=== PATIENT | male | born 1985 | race American Indian/Alaskan Native ===

== ENCOUNTER 2016-07-18 15:45 | Emergency (ER) | payer MEDICAID ==
[2016-07-18 16:55] VITALS: BP 137/85
--- NOTE | 2016-07-18 17:02 | Emergency Department Report ---
Entered by SUNNY CROWLEY, acting as scribe for YADIRA STEWART NP. Chief Complaint: Psych Stated Complaint: PSYCH MEDS Time Seen by Provider: 07/18/16 16:48 - HPI History of Present Illness: 31 y/o male went to get his monthly injection of Invega, but he could not get it because he was acting odd and his bp was low. Denies pain - ROS Review of Systems: - pain - Exam Vital Signs: Vital Signs 07/18/16 16:50 Temperature 99.1 F Pulse Rate 77 Respiratory 18 Rate Blood Pressure 137/85 O2 Sat by Pulse 100 Oximetry Physical Exam: Constitutional: The patient is a well-developed, well-nourished, in no apparent distress. PT has a flat affect and is withdrawn MSE screening note: Focused history and physical exam performed. Due to findings the following was ordered: labs ED Disposition for MSE Condition: Stable This documentation as recorded by the scribe,SUNNY CROWLEY,accurately reflects the service I personally performed and the decisions made by me,YADIRA STEWART NP.
[2016-07-18 17:10] LABS: Urine Drugs of Abuse Note Disclamer
[2016-07-18 17:21] LABS: Eosinophils % (Auto) 0.7 % (0.0-4.3); Hematocrit 44.9 % (35.5-45.6); Hemoglobin 14.9 gm/dl (11.8-15.2); Mean Corpuscular HGB Conc 33 % (32-34); Mean Corpuscular Hemoglobin 29 pg (28-32); Mean Corpuscular Volume 86 fl (84-94); Platelet Count 247 K/mm3 (140-440); Red Cell Distribution Width 14.8 % (13.2-15.2)
[2016-07-18 17:24] LABS: Bilirubin,Urine NEG (Negative); Blood,Urine NEG (Negative); Ketones,Urine TR mg/dL (Negative); Leukocyte Esterase,Urine NEG (Negative); Mucus,Urine FEW /HPF; Nitrite,Urine NEG (Negative)
[2016-07-18 17:36] LABS: Alanine Aminotransferase 11 units/L (7-56); Albumin 4.4 g/dL (3.9-5); Albumin/Globulin Ratio 1.6 %; Alkaline Phosphatase 85 units/L (35-129); Anion Gap 19 mmol/L; BUN/Creatinine Ratio 11.25; Blood Urea Nitrogen 9 mg/dL (9-20); Calcium 8.9 mg/dL (8.4-10.2); Carbon Dioxide 26 mmol/L (22-30); Chloride 101.8 mmol/L (98-107); Glucose 102 mg/dL (75-100); Potassium 3.7 mmol/L (3.6-5.0); Sodium 143 mmol/L (137-145); Total Protein 7.2 g/dL (6.3-8.2)
== END 2016-07-18 20:00 | disposition left against medical advice (07) ==
LOC: EEVIPCON 15:45 → ED 15:45
DX: Z76.0 Encounter for issue of repeat prescription (principal); Z53.21 Procedure and treatment not carried out due to patient leaving prior to being seen by health care provider
CPT/HCPCS: 36415; 80053; 80307; 81001; 85025

== ENCOUNTER 2019-01-18 07:53 | Emergency (ER) | payer MEDICAID ==
[2019-01-18 08:57] LABS: Basophils # (Auto) 0.1 K/mm3 (0.0-0.1); Basophils % (Auto) 0.9 % (0.0-1.8); Eosinophils % (Auto) 0.2 % (0.0-4.3); Hematocrit 42.7 % (35.5-45.6); Hemoglobin 14.4 gm/dl (11.8-15.2); Lymphocytes # (Auto) 1.2 K/mm3 (1.2-5.4); Lymphocytes % (Auto) 13.6 % (13.4-35.0); Mean Corpuscular HGB Conc 34 % (32-34); Mean Corpuscular Volume 87 fl (84-94); Monocytes # (Auto) 0.7 K/mm3 (0.0-0.8); Monocytes % (Auto) 7.7 % (0.0-7.3); Platelet Count 354 K/mm3 (140-440); Red Blood Count 4.92 M/mm3 (3.65-5.03); Red Cell Distribution Width 14.5 % (13.2-15.2)
--- NOTE | 2019-01-18 09:02 | Emergency Department Report ---
ED Psych HPI - General Chief Complaint: Overdose Stated Complaint: TOOK MEDS Time Seen by Provider: 01/18/19 08:44 Source: family Mode of arrival: Ambulatory - History of Present Illness Initial Comments: This is a 33-year-old male with a history of schizophrenia. His last antips ychotic monthly injection was 01/01/2019. His mother reports that she came home last night and found the patient with white stuff in his mouth. She stated that she initially thought somebody had given the patient a "Zantac for dry mouth". However, the patient told her that he had taken 4 Cogentin which he had been previously prescribed. No one witnessed the event. The patient denies wanting to hurt himself. Mother reports that the patient was extremely disorganized last night and messed up his room. She states that he is now speaking incoherently and she is usually able to understand him. She states that "he goes out side all the time but knows where he is at" when I asked her concerning the possibility of him wandering. 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 MD Complaint: other -: hour(s) Associated Psychiatric Symptoms: other (overdose and acute psychosis) History of same: Yes Quality: constant Improves With: none Worsens With: none Associated Symptoms: denies other symptoms (mother is not reporting any) Treatments Prior to Arrival: other (usual psychiatric monthly shot) - Related Data Home Medications Medication Instructions Recorded Confirmed Last Taken No Known Home Medications [No 12/27/15 12/27/15 Unknown Reported Home Medications] Allergies Allergy/AdvReac Type Severity Reaction Status Date / Time No Known Allergies Allergy Verified 07/18/16 16:55 ED Review of Systems ROS: Stated complaint: TOOK MEDS Other details as noted in HPI Comment: Unobtainable due to pts medical conditions ED Past Medical Hx - Past Medical History Hx Psychiatric Treatment: Yes (schizophrenia / BIPOLAR) - Social History Smoking Status: Current Every Day Smoker Substance Use Type: None - Medications Home Medications: Home Medications Medication Instructions Recorded Confirmed Last Taken Type No Known Home Medications [No 12/27/15 12/27/15 Unknown History Reported Home Medications] ED Physical Exam - General Limitations: Altered Mental Status (acute psychosis) General appearance: alert, in no apparent distress - Head Head exam: Present: atraumatic, normocephalic - Eye Eye exam: Present: normal appearance, PERRL. Absent: scleral icterus - ENT ENT exam: Present: mucous membranes moist - Neck Neck exam: Present: normal inspection. Absent: tenderness, meningismus - Respiratory Respiratory exam: Present: normal lung sounds bilaterally. Absent: respiratory distress - Cardiovascular Cardiovascular Exam: Present: regular rate, normal rhythm. Absent: systolic murmur, diastolic murmur, rubs, gallop - GI/Abdominal GI/Abdominal exam: Present: soft, rigid, normal bowel sounds. Absent: distended, tenderness, guarding, rebound - Rectal Rectal exam: Present: deferred - Extremities Exam Extremities exam: Present: normal inspection - Back Exam Back exam: Present: normal inspection - Neurological Exam Neurological exam: Present: alert, oriented X3, CN II-XII intact, normal gait. Absent: motor sensory deficit - Psychiatric Psychiatric exam: Present: agitated (somewhat), anxious, other (disorganized thought, somewhat incomprehensible, loose associations) - Skin Skin exam: Present: warm, dry, intact, normal color. Absent: rash ED Course Vital Signs 01/18/19 01/18/19 07:56 14:12 Temperature 98.2 F 98.5 F Pulse Rate 104 H 83 Respiratory 22 18 Rate Blood Pressure 159/89 Blood Pressure 127/70 [Right] O2 Sat by Pulse 94 99 Oximetry - Reevaluation(s) Reevaluation #1: Patient's alleged overdose is essentially benign. He will be medically cleared. He is acutely psychotic, however and may require placement. 01/18/19 09:04 Reevaluation #2: Stress with mental health counselor. The patient will be placed in an inpatient psychiatric Hospital. 1013 issued. Holding orders written. 01/18/19 14:51 ED Medical Decision Making - Lab Data Result diagrams: 01/18/19 08:46 01/18/19 08:46 Laboratory Results - last 24 hr 01/18/19 01/18/19 01/18/19 08:46 08:46 09:05 WBC 9.1 RBC 4.92 Hgb 14.4 Hct 42.7 MCV 87 MCH 29 MCHC 34 RDW 14.5 Plt Count 354 Lymph % (Auto) 13.6 [place] % (Auto) 7.7 H Eos % (Auto) 0.2 Baso % (Auto) 0.9 Lymph # 1.2 [place] # 0.7 Eos # 0.0 Baso # 0.1 Seg Neutrophils % 77.6 H Seg Neutrophils # 7.0 Sodium 141 Potassium 3.8 Chloride 101.7 Carbon Dioxide 22 Anion Gap 21 BUN 8 L Creatinine 0.9 Estimated GFR > 60 BUN/Creatinine Ratio 9 Glucose 109 H POC Glucose 82 Calcium 9.2 Laboratory Results - last 24 hr 01/18/19 01/18/19 01/18/19 08:21 08:46 08:46 WBC 9.1 RBC 4.92 Hgb 14.4 Hct 42.7 MCV 87 MCH 29 MCHC 34 RDW 14.5 Plt Count 354 Lymph % (Auto) 13.6 [place] % (Auto) 7.7 H Eos % (Auto) 0.2 Baso % (Auto) 0.9 Lymph # 1.2 [place] # 0.7 Eos # 0.0 Baso # 0.1 Seg Neutrophils % 77.6 H Seg Neutrophils # 7.0 Sodium 141 Potassium 3.8 Chloride 101.7 Carbon Dioxide 22 Anion Gap 21 BUN 8 L Creatinine 0.9 Estimated GFR > 60 BUN/Creatinine Ratio 9 Glucose 109 H POC Glucose Calcium 9.2 Total Bilirubin Direct Bilirubin Indirect Bilirubin AST ALT Alkaline Phosphatase Total Creatine Kinase CK-MB (CK-2) CK-MB (CK-2) Rel Index Total Protein Albumin Albumin/Globulin Ratio Urine Bilirubin Neg Urine RBC (Auto) 1.0 U Epithel Cells (Auto) < 1.0 Salicylates Acetaminophen 01/18/19 01/18/19 01/18/19 08:59 08:59 08:59 WBC RBC Hgb Hct MCV MCH MCHC RDW Plt Count Lymph % (Auto) [place] % (Auto) Eos % (Auto) Baso % (Auto) Lymph # [place] # Eos # Baso # Seg Neutrophils % Seg Neutrophils # Sodium Potassium Chloride Carbon Dioxide Anion Gap BUN Creatinine Estimated GFR BUN/Creatinine Ratio Glucose POC Glucose Calcium Total Bilirubin 0.40 Direct Bilirubin < 0.2 Indirect Bilirubin 0.2 AST 15 ALT 15 Alkaline Phosphatase 87 Total Creatine Kinase 261 H CK-MB (CK-2) < 1.0 CK-MB (CK-2) Rel Index 0.3 Total Protein 7.6 Albumin 4.9 Albumin/Globulin Ratio 1.8 Urine Bilirubin Urine RBC (Auto) U Epithel Cells (Auto) Salicylates < 0.3 L Acetaminophen < 5.0 L 01/18/19 09:05 WBC RBC Hgb Hct MCV MCH MCHC RDW Plt Count Lymph % (Auto) [place] % (Auto) Eos % (Auto) Baso % (Auto) Lymph # [place] # Eos # Baso # Seg Neutrophils % Seg Neutrophils # Sodium Potassium Chloride Carbon Dioxide Anion Gap BUN Creatinine Estimated GFR BUN/Creatinine Ratio Glucose POC Glucose 82 Calcium Total Bilirubin Direct Bilirubin Indirect Bilirubin AST ALT Alkaline Phosphatase Total Creatine Kinase CK-MB (CK-2) CK-MB (CK-2) Rel Index Total Protein Albumin Albumin/Globulin Ratio Urine Bilirubin Urine RBC (Auto) U Epithel Cells (Auto) Salicylates Acetaminophen - EKG Data -: EKG Interpreted by Me EKG shows normal: sinus rhythm, axis, intervals, QRS complexes, ST-T waves Rate: tachycardia - EKG Data Interpretation: no acute changes Critical care attestation.: If time is entered above; I have spent that time in minutes in the direct care of this critically ill patient, excluding procedure time. ED Disposition Clinical Impression: Medical clearance for psychiatric admission, Acute psychosis Schizophrenia Qualifiers: Schizophrenia type: undifferentiated schizophrenia Qualified Code(s): F20.3 - Undifferentiated schizophrenia Disposition: DC/TX-70 ANOTHER TYPE HLTHCARE Is pt being admited?: No Does the pt Need Aspirin: No Condition: Stable Referrals: SILVINO LANDA MD [Primary Care Provider] - 3-5 Days Time of Disposition: 10:02
[2019-01-18 09:07] LABS: BUN/Creatinine Ratio 9; Blood Urea Nitrogen 8 mg/dL (9-20); Calcium 9.2 mg/dL (8.4-10.2); Hemolysis Index 9
[2019-01-18 09:31] LABS: Creatine Kinase MB < 1.0 ng/mL (0.0-4.0)
[2019-01-18 09:33] LABS: Alanine Aminotransferase 15 units/L (7-56); Albumin 4.9 g/dL (3.9-5); Bilirubin,Direct < 0.2 mg/dL (0-0.2)
[2019-01-18 09:57] LABS: Bilirubin,Urine NEG (Negative); Blood,Urine NEG (Negative); Color,Urine Yellow (Yellow); Mucus,Urine 1+ /HPF; Protein,Urine <15 mg/dL mg/dL (Negative); Urobilinogen,Urine < 2.0 mg/dL (<2.0)
[2019-01-18 10:05] LABS: Amphetamine Screen,Urine PRESUMPTIVE NEGATIVE; Benzodiazepines Screen,Urine PRESUMPTIVE NEGATIVE; Cocaine Screen,Urine PRESUMPTIVE NEGATIVE; Methadone Screen,Urine PRESUMPTIVE NEGATIVE; Opiate Screen,Urine PRESUMPTIVE NEGATIVE
[2019-01-18 10:16] LABS: Cannabinoid Screen,Urine PRESUMPTIVE POSITIVE
[2019-01-18] MEDS ORDERED: MAGNESIUM HYDROXIDE (MOM) ORAL LIQD UDC PO PRN (14:52)
[2019-01-18] MEDS ORDERED: ACETAMINOPHEN 325 MG TAB PO PRN (14:52)
[2019-01-18] MEDS ORDERED: ALUM-MAG HYDROXIDE-SIMETHICONE 200-200-20MG/5ML ORAL LIQD 30 ML PO PRN (14:52)
[2019-01-18] MEDS ORDERED: ZIPRASIDONE MESYLATE 20 MG VIAL IM PRN (14:53)
[2019-01-18] MEDS: ZIPRASIDONE 20 MG CAP PO SCH (16:58)
[2019-01-19] MEDS: ZIPRASIDONE 20 MG CAP PO SCH (00:15)
[2019-01-19 01:31] VITALS: BP 125/68
== END 2019-01-19 01:14 | disposition other institution (70) ==
LOC: ED 07:53
DX: F25.0 Schizoaffective disorder, bipolar type (principal); F17.200 Nicotine dependence, unspecified, uncomplicated
CPT/HCPCS: 36415; 80048; 80076; 80307; 80320; 81001; 82550; 82553; 82962; 85025; 93005; 93010; G0480